=== PATIENT | female | born 2000 | race Caucasian/White ===

== ENCOUNTER 2020-12-01 14:37 | Outpatient (REF) | payer OTHER, SELFPAY ==
--- NOTE | ~2020-12-01 | XR_ITS ---
EXAMINATION: XR SHOULDER, RIGHT CLINICAL INFORMATION: Right shoulder pain COMPARISON: None TECHNIQUE: AP external rotation, Grashey, scapular Y, and axillary views of the right shoulder. FINDINGS: The bones and soft tissues are normal. No fracture. Glenohumeral and acromioclavicular alignment is anatomic with normal joint space. No abnormal soft tissue calcifications. XR/XR shoulder RT min 2V IMPRESSION: Normal right shoulder.
--- NOTE | ~2020-12-01 | XR_ITS ---
EXAMINATION: DORSAL SPINE SERIES LUMBAR SACRAL SPINE SERIES CLINICAL INFORMATION: Dorsalgia COMPARISON: None TECHNIQUE: 3 views of the dorsal spine. 3 views of lumbar sacral spine. FINDINGS: Dorsal spine: Vertebral bodies normally aligned without fracture or degenerative change. Surrounding soft tissues normal. Lumbar sacral spine: Vertebral bodies normally aligned. Disc spaces and facets normal. No fracture. Surrounding soft tissues are normal. Visualized pelvis normal. XR/XR thoracic spine 3V IMPRESSION: Normal x-ray series of the dorsal spine and lumbar sacral spine
--- NOTE | ~2020-12-01 | XR_ITS ---
EXAMINATION: DORSAL SPINE SERIES LUMBAR SACRAL SPINE SERIES CLINICAL INFORMATION: Dorsalgia COMPARISON: None TECHNIQUE: 3 views of the dorsal spine. 3 views of lumbar sacral spine. FINDINGS: Dorsal spine: Vertebral bodies normally aligned without fracture or degenerative change. Surrounding soft tissues normal. Lumbar sacral spine: Vertebral bodies normally aligned. Disc spaces and facets normal. No fracture. Surrounding soft tissues are normal. Visualized pelvis normal. XR/XR lumbar spine 2-3V IMPRESSION: Normal x-ray series of the dorsal spine and lumbar sacral spine
== END 2020-12-01 14:38 | disposition home or self-care (01) ==
LOC: HO.HMGCX 14:37
PROVIDERS: PCP Internal Medicine; Visit Provider Nurse Practitioner Family
DX: M54.9 Dorsalgia, unspecified (principal); M25.511 Pain in right shoulder; M54.12 Radiculopathy, cervical region
CPT/HCPCS: 72072; 72100; 73030

== ENCOUNTER 2020-12-14 13:03 | Outpatient (RCR) | payer OTHER, SELFPAY ==
--- NOTE | 2020-12-14 14:58 | MHC.PT.EP ---
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 OBJECTIVE FINDINGS: LIMITED CERV AND Rt SH AROM, (+) SOFT TISSUE IRRIT IN Rt UPPER TRAP/ SCALENE TRIANGLE/ PARASCAP / POST RC/ Rt CLAVICLE REGION; (+) TOS TESTS Rt, DECR POSTURAL AWARENESS W TIGHT PECT, AND INTERM RADIC SXS INTO Rt UE TO HER WRIST. 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 Pt IS A GREAT CANDIDATE FOR PT TO ADDRESS THE ABOVE FINDINGS- Rt SH STRAIN W TOS SXS Rt , PAIN MANAGEMENT, AND DEV SELF-SX MGMT STRATEGIES. Frequency and Duration: The patient will be seen 2x WK x 5 WKS Short Term Goals: Pt'S Rt CERV/ SH PAIN DECR TO 2-3/10 AND DECR RIGHT UE RADIC SXS BY 75% IN 3 WKS Pt INDEP SELF-POSTURAL CORRECTION IN 2 WKS Pt DEMON WFL AROM Rt UE AND CERV REGION IN 3 WKS Diamond Expert Goals: Pt INDEP HEP AND SELF-SX MGMT TECHN IN 5 WKS Pt INCR ACTIVITY TED/ FUNCT MOB TED EVIDENT W IMPROVED SPADI SCORE BY AT LEAT 15 POINTS (120/130 AT EVAL) IN 5 WKS Treatment Plan: Modalities to reduce pain, spasms and effusion. Manual therapy to restore motion and function. Therapeutic exercise to improve strength and flexibility. Neuromuscular re-education for posture and balance. Therapeutic activities to return to functional activities of daily living. Electronically signed by: Bessie Rm,PT Please sign and return to therapist. Thank you for your referral.
--- NOTE | 2021-01-01 12:13 | MHC.PT.DC ---
[facility] [place] Office [place] [facility] [place] [facility] [address] Yaa Pritchard [address] [phone] F: [phone] F: [phone] F: [phone] F: [phone] Physical Therapy Discharge Report Diagnosis: CERVICAL RADICULOPATHY, ;PAIN IN RIGHT SHOULDER Date of Surgery: Date of Evaluation: 12/14/20 Date of Discharge: 01/01/21 Treatments to Date: 1 Cancellations to Date: 0 No Shows to Date: 2 Discharge Status: Visit Non-compliance Discharge Summary: 20 YO FEMALE REF TO PT W RIGHT CERV RADICULOPATHY/ Rt SH PAIN AFTER A WEIGHT LIFTING INJURY APPROX 11/17/20- Pt IS RIGHT HAND DOMIN[employer] AND WORKS 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 OBJECTIVE FINDINGS: LIMITED CERV AND Rt SH AROM, (+) SOFT TISSUE IRRIT IN Rt UPPER TRAP/ SCALENE TRIANGLE/ PARASCAP / POST RC/ Rt CLAVICLE REGION; (+) TOS TESTS Rt, DECR POSTURAL AWARENESS W TIGHT PECT, AND INTERM RADIC SXS INTO Rt UE TO HER WRIST. 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 Pt IS A GREAT CANDIDATE FOR PT TO ADDRESS THE ABOVE FINDINGS- Rt SH STRAIN W TOS SXS Rt , PAIN MANAGEMENT, AND DEV SELF-SX MGMT STRATEGIES; HOWEVER, Pt DID NOT RETURN FOR F/U SCHED APPTS. Electronically signed by: Bessie Abdalla,PT Please sign and return to therapist. Thank you for your referral.
== END 2021-01-01 12:14 | disposition home or self-care (01) ==
LOC: HO.PTCHIC 13:03
PROVIDERS: PCP Internal Medicine; Visit Provider Nurse Practitioner Family
DX: M54.12 Radiculopathy, cervical region (principal); M25.511 Pain in right shoulder
CPT/HCPCS: 97110; 97162